=== PATIENT | female | born 1965 | race Caucasian/White ===

== ENCOUNTER → 2025-02-11 | Outpatient (CLI) | payer MEDICAID ==
--- NOTE | 2025-02-22 10:59 | BMR ---
EXAM DATE: 02/11/2025 EXAM DESCRIPTION: MRI-Breast Bilat (W/WO Contrast) INDICATION: Screening MRI>20% lifetime risk for malignancy presenting for high risk surveillance. History of left breast cancer status post breast conserving therapy. COMPARISON: Comparison is made with relevant prior imaging in PACS. CONTRAST: 6.5 cc of Gadavist TECHNIQUE: Multiplanar MRI imaging of both breasts was performed with a dedicated breast coil, before and after intravenous administration of gadolinium contrast, using the standard breast mass protocol. Computer-aided detection was used to aid in interpretation. FINDINGS: General breast composition: The breast is heterogeneously dense Background parenchymal enhancement: Minimal FINDINGS: Right Breast: Review of the dynamic contrast-enhanced series shows focal asymmetry in the upper inner breast at mid to posterior depth measuring 1.0 x 0.5 x 0.5 cm (505:460, 601:151) Left Breast: Review of the dynamic contrast-enhanced series shows for post treatment changes. No rapidly enhancing masses, suspicious enhancement patterns or other abnormalities. The T2 weighted series shows no abnormality. No lymphadenopathy. IMPRESSION: Right Breast: BI-RADS Category 4- Suspicious Focal asymmetry in the upper inner breast at mid to posterior depth for which targeted ultrasound and possible biopsy are recommended for further evaluation. If no sonographic correlate is present MR biopsy is recommended. Left Breast: BI-RADS Category 2- Benign No MRI evidence of malignancy.Post treatment changes are present. Recommendation: MRI screening in 1 year OVERALL ASSESSMENT -- BI-RADS 4 MTDD
== END | disposition home or self-care (01) ==
LOC: RADMRIMAIN 17:39
PROVIDERS: ATTEND Student in an Organized Health Care Education/Training Program
DX: N64.4 Mastodynia (principal); N64.89 Other specified disorders of breast; Z85.3 Personal history of malignant neoplasm of breast
CPT/HCPCS: 77049; A9585